=== PATIENT | male | born 1970 | race African-American/Black ===

== ENCOUNTER 2016-08-29 18:32 | Emergency (ER) | payer OTHER ==
[~2016-08-29 18:32] MED LIST: BLEPH-105 ML OP; CIPRO PO
[2016-10-10] MEDS ORDERED: TOPROL XL PO (14:26)
== END 2016-08-29 18:50 | disposition home or self-care (01) ==
LOC: CFTX 18:32
DX: L02.415 Cutaneous abscess of right lower limb (principal); S80.261A Insect bite (nonvenomous), right knee, initial encounter; J45.909 Unspecified asthma, uncomplicated; Z79.2 Long term (current) use of antibiotics; Z91.040 Latex allergy status; W57.XXXA Bitten or stung by nonvenomous insect and other nonvenomous arthropods, initial encounter
CPT/HCPCS: 99282

== ENCOUNTER 2016-09-06 19:54 | Emergency (ER) | payer OTHER ==
[2016-09-06 17:37] LABS: URINE SOURCE CLEAN CATCH
[2016-09-06 17:43] LABS: BASOPHIL# 0.1 X10e3 (0-0.3); BASOPHIL% 1.5 % (0-2.5); DIFF IND NO; EOSINOPHIL# 0.1 X10e3 (0-0.7); EOSINOPHIL% 1.3 % (0.0-7.0); HEMATOCRIT 40.1 % (38.0-50.0); HEMOGLOBIN 13.5 gm/dL (13.0-16.0); LYMPHOCYTE# 2.9 X10e3 (1.0-3.5); MEAN CELL VOLUME 91.7 FL (83-96); MEAN CORPUSCULAR HEMOGLOBIN 30.9 PG (28-34); MEAN CORPUSCULAR HGB CONC 33.7 g/dL (30-36); MEAN PLATELET VOLUME 8.7 FL (6.5-11.5); MONOCYTE# 0.5 X10e3 (0-1.0); MONOCYTE% 7.9 % (3.0-12.0); NEUTROPHIL# 2.9 X10e3 (1.5-7.1); NEUTROPHIL% 44.3 % (40-75); PLATELET COUNT 182 X10e3 (140-420); RED BLOOD COUNT 4.38 X10e (3.90-5.60); RED CELL DISTRIBUTION WIDTH 12.7 % (11.0-15.5); WHITE BLOOD COUNT 6.5 X10e3 (4.0-10.5)
[2016-09-06 17:44] LABS: URINE APPEARANCE CLEAR; URINE BILIRUBIN NEG (NEG); URINE BLOOD NEG (NEG); URINE COLOR YELLOW; URINE GLUCOSE NEG (NEG); URINE KETONE NEG (NEG); URINE LEUKOCYTE ESTERASE NEG (NEG); URINE NITRATE NEG (NEG); URINE PROTEIN NEG (NEG); URINE SPECIFIC GRAVITY 1.024 (1.003-1.035)
[2016-09-06 17:49] LABS: CULTURE INDICATED? NO
[2016-09-06 18:05] LABS: ALBUMIN SERUM 4.6 g/dL (3.5-5.0); BILIRUBIN, DIRECT 0.1 mg/dL (0.0-0.2); BILIRUBIN,INDIRECT 0.5 mg/dL (0.0-0.9); BILIRUBIN,TOTAL 0.6 mg/dL (0.2-2.0); BUN/CREATININE RATIO 12.72; CREATININE SERUM 1.1 mg/dL (0.6-1.4); GLOM FILT RATE Estimated 94.1 mL/min (>60); POTASSIUM 3.9 mmol/L (3.5-5.1); PROTEIN TOTAL SERUM 7.3 g/dL (6.0-8.3)
[2016-10-10] MEDS ORDERED: TOPROL XL PO (14:26)
== END 2016-09-06 21:30 | disposition home or self-care (01) ==
LOC: CED 19:54
DX: K40.90 Unilateral inguinal hernia, without obstruction or gangrene, not specified as recurrent (principal); I10 Essential (primary) hypertension; Z91.040 Latex allergy status
CPT/HCPCS: 36415; 80048; 80076; 81003; 83690; 85025; 99283; 99284

== ENCOUNTER → 2016-10-07 10:48 | Emergency (ER) | payer OTHER ==
[~2016-10-07 10:48] MED LIST changes: +TOPROL XL PO
== END | disposition home or self-care (01) ==
LOC: CFTX 10:48
DX: K40.90 Unilateral inguinal hernia, without obstruction or gangrene, not specified as recurrent (principal); J45.909 Unspecified asthma, uncomplicated; Z91.040 Latex allergy status; Z79.899 Other long term (current) drug therapy
CPT/HCPCS: 99283; 99284

== ENCOUNTER → 2016-10-10 | Outpatient (CLI) | payer OTHER ==
--- NOTE | ~2016-10-10 | EKG ---
PATIENT: SAMUEL MOLINA UNIT #: [id number] Ventricular Rate: 70 BPM Atrial Rate: 54 BPM P-R Interval: 138 ms QRS Duration: 80 ms Q-T Interval: 402 ms QTC Calculation(Bezet): 434 ms P Basco: 65 degrees Calculated R Basco: 37 degrees Calculated T Basco: -24 degrees Diagnosis Line: Sinus bradycardia with frequent Premature Diagnosis Line: ventricular complexes Diagnosis Line: Nonspecific T wave abnormality Diagnosis Line: Abnormal ECG Diagnosis Line: No previous ECGs available Diagnosis Line: Confirmed by JAN CARRASQUILLO MD ([id number]) on 10/11/2016 Diagnosis Line: 8:02:47 PM INTERPRETING MD: FOREIGN EPPS
[2016-10-10 14:21] LABS: HEMATOCRIT 38.6 % (38.0-50.0); HEMOGLOBIN 13.1 gm/dL (13.0-16.0); MEAN CELL VOLUME 91.6 FL (83-96); MEAN CORPUSCULAR HEMOGLOBIN 31.1 PG (28-34); MEAN PLATELET VOLUME 9.3 FL (6.5-11.5); RED BLOOD COUNT 4.22 X10e (3.90-5.60); WHITE BLOOD COUNT 5.6 X10e3 (4.0-10.5)
[2016-10-10 15:30] LABS: BUN/CREATININE RATIO 12.72; CALCIUM SERUM 9.1 mg/dL (8.4-10.2); CREATININE SERUM 1.1 mg/dL (0.6-1.4); GLOM FILT RATE Estimated 94.1 mL/min (>60); POTASSIUM 4.2 mmol/L (3.5-5.1)
== END | disposition home or self-care (01) ==
LOC: CAMB 13:41
PROVIDERS: Specialist
DX: Z01.818 Encounter for other preprocedural examination (principal); K40.90 Unilateral inguinal hernia, without obstruction or gangrene, not specified as recurrent
CPT/HCPCS: 36415; 80048; 85027; 93005

== ENCOUNTER → 2016-10-17 | Day surgery (SDC) | payer OTHER ==
--- NOTE | ~2016-10-17 | OR ---
Unit #: [id number] #: [id number] Patient: SAMUEL MOLINA [id number] [facility] [address] [place], [place] [address] [id number] MR#: [id number] NAME: SAMUEL MOLINA ROOM: Date of Procedure: 10/17/2016 Admission Date: 10/17/2016 Surgeon: Sea Junior M.D. : 1970 Attending Physician: Sea Junior M.D. Primary Care Physician: Pj Barnes Sr., M.D. PROCEDURE OPERATIVE NOTE PREOPERATIVE DIAGNOSIS Left inguinal hernia. POSTOPERATIVE DIAGNOSIS Direct left inguinal hernia. PROCEDURE PERFORMED Open repair with PerFix plug mesh. ANESTHESIA Monitored anesthesia. ESTIMATED BLOOD LOSS Less than 20 mL. INDICATION A 46-year-old gentleman who was doing some strenuous work. He felt a popping sensation and within several days had a palpable bulge in the left inguinal canal. He came to the office, and on examination, he had a reducible left inguinal hernia. PROCEDURE Patient was admitted to [facility], positively identified, and transported to the operating room. After induction of general endotracheal anesthesia, he received IV antibiotics per SKIP protocol, and was prepped and draped in the usual sterile fashion. A transverse incision in the skin line was made over the left inguinal canal. I dissected down through the soft tissue exposing the external oblique aponeurosis. The aponeurosis opened in the direction of its fibers to include the external ring. Shelving edge and rectus sheaths were identified. Ilioinguinal nerve was identified and preserved. Cord structure was elevated from the floor of the inguinal canal. The cord was intact with no indirect sac. In the floor of the inguinal canal however, there was a well-defined hernia sac with a palpable fascial defect. The hernia sac was mobilized and reduced through the defect back in the peritoneal cavity and held in reduction with a small PerFix plus. The plus was secured with multiple 0 Ethibond interrupted sutures. On-lay mesh was secured to the pubic tubercle medially, stretched across the inguinal canal, and the tails were wrapped around the internal ring and secured to the muscular fascial tissue superior and medial. The limbs of the mesh were then secured to the shelving edge of the inguinal ligament and the rectus sheath. Local anesthetic was infiltrated in the skin and soft tissue. The spermatic cord was placed back in the anatomic position. Unit #: [id number] #: [id number] Patient: SAMUEL MOLINA There was good hemostasis. After irrigating, the soft tissues were closed with 3-0 Vicryl interrupted suture. The skin was closed with 4-0 Monocryl running subcuticular closure and Dermabond skin adhesive. Sponge and needle counts were correct times three. Patient tolerated the procedure well and was transported to recovery in stable condition. Findings and postoperative instructions were discussed with his . Dictated by... Jagjit Fung/warren TD: 10/17/2016 15:54 JOB #: [id number] PROCEDURE OPERATIVE NOTE Page 1 of 1 X Sea Junior MD X PROCEDURE OPERATIVE NOTE
== END | disposition home or self-care (01) ==
LOC: CSUR 10:00
DX: K40.90 Unilateral inguinal hernia, without obstruction or gangrene, not specified as recurrent (principal); M19.90 Unspecified osteoarthritis, unspecified site; J45.909 Unspecified asthma, uncomplicated; Z91.040 Latex allergy status; Z79.899 Other long term (current) drug therapy
CPT/HCPCS: C1781; J0131; J0690; J1885; J2250; J2405; J3010